=== PATIENT | female | born 1980 | race Two or more races ===

== ENCOUNTER 2025-03-20 22:20 | Emergency (ER) | payer OTHER ==
[~2025-03-20] VITALS: Ht 160 cm; Wt 80.9 kg
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
[2025-03-20] MEDS: ACETAMINOPHEN 325 MG TAB PO ONE (22:45)
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
[2025-03-21 04:00] VITALS: RESP 14
[2025-03-21 04:14] VITALS: BP 139/59; PULSE 65; RESP 18; TEMP 98.1; O2SAT 98
--- NOTE | 2025-03-21 13:57 | ECG ---
[facility] Test Date: 2025-03-20 Test Time: 22:40:10 Pat Name: DOE SIERRA Department: ED Room: Gender: F Top Inventory Control Executive: RADHA : 1980 Requested By: ALISA RENO Order Number: [id number] Reading MD: Krish Sanchez Measurements Intervals [place] Rate: 77 P: 61 PA: 152 QRS: 29 QRSD: 105 T: 46 QT: 403 QTc: 457 Interpretive Statements Sinus rhythm Borderline T abnormalities, anterior leads Electronically Signed On 03-24-2025 19:54:00 PDT by Krish Sanchez Please click the below link to view image of tracing.
== END 2025-03-21 04:21 | disposition home or self-care (01) ==
LOC: ER 22:20
DX: S29.011A Strain of muscle and tendon of front wall of thorax, initial encounter (principal); Z88.5 Allergy status to narcotic agent; Z90.710 Acquired absence of both cervix and uterus; V89.2XXA Person injured in unspecified motor-vehicle accident, traffic, initial encounter; Y93.89 Activity, other specified; Y92.410 Unspecified street and highway as the place of occurrence of the external cause; Y99.8 Other external cause status
CPT/HCPCS: 71046; 93005